=== PATIENT | male | born 1990 | race Caucasian/White ===

== ENCOUNTER 2016-10-10 19:24 | Emergency (ER) | payer BC, OTHER ==
[~2016-10-10] VITALS: Ht 177.8 cm; Wt 93.0 kg
[~2016-10-10 19:24] MED LIST: HYDR1TAB PO; METH4TAB PO; NAPR550T PO
[2016-10-10] MEDS ORDERED: RX-GENTAMICIN 0.3% OP OINT 3.5 GM TUBE OP STA (20:00)
[2016-10-10] MEDS ORDERED: TETRACAINE 0.5% OPHTH SOLN 4 ML BTL (SINGLE DOSE ONLY) OP ONE (20:00)
[2016-10-10] MEDS ORDERED: FLUORESCEIN (FLUOR-I-STRIPS) 1 MG STRP OU ONE (20:00)
[2016-10-10] MEDS ORDERED: BSS 15 ML IR ONE (20:00)
--- NOTE | 2016-10-10 20:00 | ED EENT ---
History of Present Illness General Chief Complaint: Eye Problems Stated Complaint: RT EYE PAIN Nursing Triage Note: C/O DISCOMFORT ON RIGHT EYE SINCE THIS AM. DENIES INJURY. REDNESS/TEARING/BURNING. Source: patient Exam Limitations: no limitations History of Present Illness Time seen by provider: 19:55 Initial Comments To ER with right eye redness and discomfort since earlier this afternoon. 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 He does wear daily disposable contacts and put in a fresh contact this morning and does routinely change them daily. He took about later this evening thinking that might be the cause of his discomfort but the pain persisted. Timing/Duration: gradual Severity: moderate Location: eye (R) Allergies and Home Medications Allergies Coded Allergies: Cefaclor (Verified Adverse Reaction, Mild, HIVES, 04/30/12) Home Medications No Active Prescriptions or Reported Meds Review of Systems Constitutional: see HPI Eyes: See HPI, Drainage, Inflammation Ears: No Symptoms Reported Nose: no symptoms reported Mouth: no symptoms reported Throat: no symptoms reported Respiratory: no symptoms reported Cardiovascular: no symptoms reported Musculoskeletal: no symptoms reported Past Rvusuoa-Gmqlhd-Ituznn Hx Patient Social History Alcohol Use: Rarely Uses Recreational Drug Use: No Smoking Status: Current Everyday Smoker Type Used: Cigarettes 2nd Hand Smoke Exposure: Yes Recent Foreign Travel: No Contact w/Someone Who Travel: No Recent Infectious Disease Expo: No Recent Hopitalizations: No Immunizations Up To Date Tetanus Booster (TDap): Less than 5yrs PED Vaccines UTD: Yes Seasonal Allergies Seasonal Allergies: Yes Surgeries HX Surgeries: Yes (DENTAL, EGD) Surgeries: Tonsillectomy Respiratory Hx Respiratory Disorders: No Cardiovascular Hx Cardiac Disorders: No Neurological Hx Neurological Disorders: No Reproductive System Hx Reproductive Disorders: No Genitourinary Hx Genitourinary Disorders: No Gastrointestinal Hx Gastrointestinal Disorders: No Musculoskeletal Hx Musculoskeletal Disorders: No Endocrine Hx Endocrine Disorders: No HEENT HX ENT Disorders: No Cancer Hx Cancer: No Psychosocial Hx Psychiatric Problems: No Integumentary HX Skin/Integumentary Disorder: No Blood Transfusions Hx Blood Disorders: No Physical Exam Vital Signs Vital Sign - Last 12Hours 10/10/16 19:39 Temp 98.0 Pulse 73 Resp 18 B/P (MAP) 114/75 Pulse Ox 98 O2 Delivery Room Air General Appearance: WD/WN, no apparent distress, other (patient has taken his right contact out and vision in that eye without correction is 20/200. On the left, corrected vision with contacts is 20/20. That contact remains in place.) Eyes: right eye conjunctival inflammation, right eye lid inflammation, right eye other (there is no corneal foreign body or corneal abrasion seen with flourescein staining. There is no hypopyon or hyphema. There is scleral injection and conjunctival erythema and swelling. There is no foreign body seen on the conjunctival surface of the lids either.), bilateral eye EOMI, bilateral eye PERRL Ears: bilateral ear TM normal, bilateral ear auricle normal, bilateral ear canal normal Neck: non-tender, full range of motion Respiratory: no respiratory distress, no accessory muscle use Gastrointestinal: non tender, soft Neurologic/Psychiatric: alert, normal mood/affect, oriented x 3 Skin: normal color, warm/dry Progress/Results/Core Measures Results/Orders My Orders Orders - YASMANY PARADA APRN Fluorescein Strips (Idltu-Y-Wzojso) (10/10/16 20:00) Balanced Salt Irrigation Soln (Bss Irrig (10/10/16 20:00) Tetracaine 0.5% Ophth Kathryn Sdv (Tetracai (10/10/16 20:00) Vital Signs/I&O Vital Sign - Last 12Hours 10/10/16 19:39 Temp 98.0 Pulse 73 Resp 18 B/P (MAP) 114/75 Pulse Ox 98 O2 Delivery Room Air Blood Pressure Mean: 88 Departure Impression Impression: Primary Impression: Conjunctivitis Qualified Codes: H10.31 - Unspecified acute conjunctivitis, right eye Disposition: 01 HOME, SELF-CARE Condition: Stable Departure-Patient Inst. Decision time for Depature: 19:59 Referrals: RODRICK ROCHA OD NO,LOCAL PHYSICIAN (PCP) Primary Care Physician Patient Instructions: Conjunctivitis ([place]) (DC) Add. Discharge Instructions: 1. Return to the emergency room for any worsening redness or other concerns 2. Do not wear your contacts in the right eye for the next 3 days and dispose of them daily. Use the antibiotic ointment as directed 3. Follow-up with Dr. Rocha later this week or next week for recheck. All discharge instructions reviewed with patient and/or family. Voiced understanding. Scripts No Active Prescriptions or Reported Meds YASMANY PARADA APRN Oct 10, 2016 20:00
[2016-10-10 20:07] VITALS: BP 114/75
--- OUTSIDE RECORDS SUMMARY | 2016-11-12 15:22 | XMS REPORT | Continuity of Care Document ---
Author Author [facility] Address Unknown Phone Unavailable Allergies Active Description Code Type Severity Reaction Onset Reported/Identified Relationship to Patient Clinical Status Yes Ceclor Drug Allergy 09/16/2010 Medications Problems Date Dx Coded Attending Type Code Diagnosis Diagnosed By 09/16/2010 WHIT HANNA APRN V70.3 SPORTS/SCHOOL EXAM 09/16/2010 HUGH LEWIS APRN V70.3 SPORTS/SCHOOL EXAM 06/03/2012 WHIT HANNA APRN 724.2 BACK PAIN, LOWER 06/03/2012 HUGH LEWIS APRN 724.2 BACK PAIN, LOWER 08/02/2012 HUGH LEWIS APRN 296.90 MOOD DISORDER NOS Procedures Results Encounters ACCT No. Visit Date/Time Discharge Status Pt. Type Provider Facility Loc./Unit Complaint [id number] 08/02/2012 10:48:00 08/02/2012 23: 59:59 CLS Outpatient HUGH LEWIS APRN [id number] 06/03/2012 10:45:00 06/03/2012 23: 59:59 CLS Outpatient WHIT HANNA APRN
== END 2016-10-10 20:05 | disposition home or self-care (01) ==
LOC: EDUNIT# 19:24 → ER 19:25
DX: H10.31 Unspecified acute conjunctivitis, right eye (principal); F17.210 Nicotine dependence, cigarettes, uncomplicated
CPT/HCPCS: 99283

== ENCOUNTER 2018-12-13 06:43 | Emergency (ER) | payer OTHER, BC ==
[~2018-12-13] VITALS: Ht 177.8 cm; Wt 95.3 kg
[2018-12-13] MEDS ORDERED: CLIN300C11 PO (07:10)
[2018-12-13] MEDS ORDERED: PRD20T PO (07:10)
--- NOTE | 2018-12-13 07:10 | ED General ---
General Chief Complaint: Facial Problems Stated Complaint: FACE SWELLING AFTER WEED EATING Source of Information: Patient Exam Limitations: No Limitations History of Present Illness Date Seen by Provider: Dec 13, 2018 Time Seen by Provider: 06:57 Initial Comments This 28-year-old young man presents to the emergency room with swelling of his left face. He was weed eating yesterday when he believes he was stung by an insect on the back of his head. He had some swelling of the face that improved after taking Claritin. However, when he woke this morning his left face was more swollen. He denies pain or itching. Vision is unaffected. He has not taken any medications this morning. He did lay on the left side of his face for a while in the night. There is no evidence of pain, swelling, erythema, or break in skin on the back of the head where he was stung. He denies any difficulty breathing or lip, tongue, or throat swelling. Allergies and Home Medications Allergies Coded Allergies: Cefaclor (Verified Adverse Reaction, Mild, HIVES, 04/30/12) Home Medications Clindamycin HCl 300 Mg Capsule, 300 MG PO QID Prescribed by: IRWIN CARRION on 12/13/18 0710 Prednisone 20 Mg Tab, 20 MG PO DAILY Prescribed by: IRWIN CARRION on 12/13/18 0710 Patient Home Medication List Home Medication List Reviewed: Yes Review of Systems Review of Systems Constitutional: no symptoms reported EENTM: see HPI Respiratory: no symptoms reported Cardiovascular: no symptoms reported Gastrointestinal: no symptoms reported Genitourinary: no symptoms reported Musculoskeletal: no symptoms reported Skin: see HPI Psychiatric/Neurological: No Symptoms Reported Hematologic/Lymphatic: No Symptoms Reported Immunological/Allergic: no symptoms reported Past Drftfkf-Nvbrmq-Iaapjr Hx Past Med/Social Hx: Reviewed and Corrections made Patient Social History Alcohol Beverage of Choice: Beer Type Used: Cigarettes 2nd Hand Smoke Exposure: Yes Recent Foreign Travel: No Contact w/Someone Who Travel: No Recent Hopitalizations: No Immunizations Up To Date Tetanus Booster (TDap): Less than 5yrs PED Vaccines UTD: Yes Seasonal Allergies Seasonal Allergies: Yes Past Medical History Surgeries: No Tonsillectomy Respiratory: No Cardiac: No Neurological: No Reproductive Disorders: No Genitourinary: No Gastrointestinal: No Musculoskeletal: No Endocrine: No HEENT: No Psychosocial: No Integumentary: No Physical Exam Vital Signs Vital Signs - First Documented 12/13/18 06:52 Temp 96.9 Pulse 79 Resp 18 B/P (MAP) 135/75 (95) Pulse Ox 96 O2 Delivery Room Air Capillary Refill : Height, Weight, BMI Height: 5'10.00" Weight: 205lbs. oz. 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 Decision time for Depature: 07:07 Referrals: OBDULIO CROW MD (PCP/Family) Primary Care Physician Patient Instructions: Insect Bites and Stings (DC) Add. Discharge Instructions: The swelling of your face is likely due to the venom from an insect sting. However, infection and/or allergy cannot be ruled out. Try taking a long-acting nondrowsy antihistamine such as Claritin (generic is loratadine) or Zyrtec (generic is cetirizine). Take that this morning. If your symptoms do not improve throughout the day, start the medications prescribed. Return to care if you have worsening symptoms. Return to care immediately or call 911 if you develop swelling of the lips, tongue, or throat or shortness of breath. All discharge instructions reviewed with patient and/or family. Voiced understanding. Scripts Prednisone (Prednisone) 20 Mg Tab 20 MG PO DAILY, #4 TAB 0 Refills Prov: BRUEGGEMANN,IRWIN T MD 12/13/18 Clindamycin HCl (Clindamycin HCl) 300 Mg Capsule 300 MG PO QID, #28 CAP Prov: IRWIN TOLEDO MD 12/13/18 Work/School Note: Work Release Form Date Seen in the Emergency Department: Dec 13, 2018 Return to Work: Dec 13, 2018 Restrictions: No Restrictions IRWIN TOLEDO MD Dec 13, 2018 07:10
[2018-12-13 07:15] VITALS: BP 134/85
== END 2018-12-13 07:15 | disposition home or self-care (01) ==
LOC: EDUNIT# 06:43 → ER 06:49
DX: T63.481A Toxic effect of venom of other arthropod, accidental (unintentional), initial encounter (principal); R22.0 Localized swelling, mass and lump, head; Z88.1 Allergy status to other antibiotic agents; Z79.52 Long term (current) use of systemic steroids; Z77.22 Contact with and (suspected) exposure to environmental tobacco smoke (acute) (chronic); Z90.89 Acquired absence of other organs
CPT/HCPCS: 99283